=== PATIENT | female | born 1955 | race Caucasian/White ===

== ENCOUNTER 2024-04-09 10:54 | Day surgery (SDC) | payer MEDICARE ==
[~2024-04-09] VITALS: Ht 177.8 cm; Wt 112.6 kg
[~2024-04-09 10:54] MED LIST: AMLO2.5T3 PO; ATEN25TA PO; CALC1CAP31 PO; LEVO125T4 PO; LR 1,000 ML IV SCH; MECL-86 PO; MIDAZOLAM INJ 2MG/2ML VIAL As Ordered ONE; SIMV20TA22 PO; fentaNYL 100 MCG/2 ML INJECTION As Ordered ONE
[2024-04-09] MEDS: TETRACAINE 0.5% OPHTH SOLN 4ML OS SCH (12:28)
[2024-04-09] MEDS: PHENYLEPHRINE 2.5% OPHTH SOL 2ML OS SCH (12:28)
[2024-04-09] MEDS: FLURBIPROFEN 0.03% OPHTH SOLN 2.5 ML OS SCH (12:28)
[2024-04-09] MEDS: CYCLOPENTOLATE 1% OPHTH SOLN 2ML BTL OS SCH (12:28)
[2024-04-09] MEDS: CEFUROXIME 1MG/0.1ML INTRACAMERAL INJ As Ordered ONE (14:15)
[2024-04-09] MEDS: LIDOCAINE 1% SDV 5ML VIAL As Ordered ONE (14:15)
[2024-04-09 14:35] VITALS: BP 147/84; TEMP 97.3; O2SAT 100
== END 2024-04-09 14:57 | disposition home or self-care (01) ==
LOC: M SDC 10:54
PROVIDERS: ATTEND Ophthalmology
DX: H25.12 Age-related nuclear cataract, left eye (principal); I10 Essential (primary) hypertension; E78.5 Hyperlipidemia, unspecified; E03.9 Hypothyroidism, unspecified; Z88.8 Allergy status to other drugs, medicaments and biological substances; Z85.850 Personal history of malignant neoplasm of thyroid; Z92.3 Personal history of irradiation; Z79.899 Other long term (current) drug therapy
CPT/HCPCS: 66984; J0697; J2250; J3010; V2632

== ENCOUNTER 2024-04-30 09:39 | Day surgery (SDC) | payer MEDICARE ==
[~2024-04-30] VITALS: Ht 177.8 cm; Wt 113.9 kg
[~2024-04-30 09:39] MED LIST changes: +ASPI81TA26 PO; +LEVO112T2 PO; -MIDAZOLAM INJ 2MG/2ML VIAL As Ordered ONE; -fentaNYL 100 MCG/2 ML INJECTION As Ordered ONE
[2024-04-30] MEDS: PHENYLEPHRINE 2.5% OPHTH SOL 2ML OD SCH (10:11)
[2024-04-30] MEDS: FLURBIPROFEN 0.03% OPHTH SOLN 2.5 ML OD SCH (10:11)
[2024-04-30] MEDS: TETRACAINE 0.5% OPHTH SOLN 4ML OD SCH (10:11)
[2024-04-30] MEDS: CYCLOPENTOLATE 1% OPHTH SOLN 2ML BTL OD SCH (10:11)
[2024-04-30] MEDS ORDERED: fentaNYL 100 MCG/2 ML INJECTION As Ordered ONE (11:08)
[2024-04-30] MEDS ORDERED: MIDAZOLAM INJ 2MG/2ML VIAL As Ordered ONE (11:08)
[2024-04-30] MEDS: LIDOCAINE 1% SDV 5ML VIAL As Ordered ONE (11:44)
[2024-04-30] MEDS: CEFUROXIME 1MG/0.1ML INTRACAMERAL INJ As Ordered ONE (11:44)
[2024-04-30 12:00] VITALS: BP 134/85; TEMP 96.9; O2SAT 95
== END 2024-04-30 12:23 | disposition home or self-care (01) ==
LOC: M SDC 09:39
PROVIDERS: ATTEND Ophthalmology
DX: H25.9 Unspecified age-related cataract (principal); I10 Essential (primary) hypertension; E89.0 Postprocedural hypothyroidism; E78.00 Pure hypercholesterolemia, unspecified; Z85.850 Personal history of malignant neoplasm of thyroid; Z79.899 Other long term (current) drug therapy; Z79.82 Long term (current) use of aspirin; Z79.890 Hormone replacement therapy; Z92.3 Personal history of irradiation; Z88.8 Allergy status to other drugs, medicaments and biological substances
CPT/HCPCS: 66984; J0697; J2250; J3010; V2632